=== PATIENT | male | born 1985 | race Caucasian/White ===

== ENCOUNTER → 2016-12-02 | Outpatient (CLI) | payer OTHER ==
--- NOTE | 2016-12-02 19:42 | XCELERA REPORT ---
[address] [address] Lower Extremity Venous Evaluation Name: PIA PORTER Age: 31 yrs Gender: Male : 1985 Patient Status: Outpatient Patient Location: Study Date: 12/02/2016 04:50 PM Procedure: Color flow and duplex imaging of the veins of the right lower extremity as well as the left Common Femoral vein. Reason For Study: RT CALF PAIN Ordering Physician: PRETTY HELTON Performed By: Alessandra Jones Right Sided Venous Evaluation Normal vessel filling wall to wall, compression and augmentation as well as Colour flow down to the infrageniculate veins. Left Sided Venous Evaluation The left common femoral vein is fully compressible. Spontaneous and phasic flow is present in the left common femoral vein. Critical Findings Called in to Dr Helton at 1930. Interpretation Summary No duplex evidence of DVT or obstruction in the right lower extremity nor in the left Common Femoral vein. : PRETTY HELTON > Jasvir Saavedra
== END ==
LOC: SP 16:41
PROVIDERS: ATTEND Internal Medicine
DX: M79.661 Pain in right lower leg (principal); R60.9 Edema, unspecified
CPT/HCPCS: 93971